=== PATIENT | female | born 1990 | race Caucasian/White ===

== ENCOUNTER 2018-11-14 09:45 | Emergency (ER) | payer MEDICAID ==
[~2018-11-14] VITALS: Ht 157.5 cm; Wt 65.8 kg
[2018-11-14 09:51] VITALS: BP 118/58
--- NOTE | 2018-11-14 09:59 | NUR ---
PATIENT AMBULATED TO BED 3.
--- NOTE | 2018-11-14 10:11 | NUR ---
PT BIB FAMILY FOR EAR PAIN X2 WEEKS. PT REPORTS CONSTANT NON-RADIATING PRESSURE LIKE PAIN IN L EAR. PT HAS BEEN TREATING WITH IBUPROFEN WITH NO RELIEF. NO VISIBLE SWELLING, REDNESS, OR DEFORMITY VISIBLE. PT DENIES TRAUMA. VSS. ER TO SEE PT. MEDHX:PREDIABETES RX:NONE
[2018-11-14 10:37] VITALS: BP 118/58
--- NOTE | 2018-11-14 10:37 | NUR ---
Patient discharged with v/s stable. Written and verbal after care instructions given and explained. Patient alert, oriented and verbalized understanding of instructions. Ambulatory with steady gait. All questions addressed prior to discharge. ID band removed. Patient advised to follow up with PMD. Rx of CORTISPORIN OTIC SUSPENSION given. Patient educated on indication of medication including possible reaction and side effects. Opportunity to ask questions provided and answered.
== END 2018-11-14 10:37 | disposition home or self-care (01) ==
LOC: MED 09:45
DX: H60.91 Unspecified otitis externa, right ear (principal)
CPT/HCPCS: 99283